=== PATIENT | female | born 1995 | race Two or more races ===

== ENCOUNTER 2020-02-22 00:11 | Observation (INO) | payer BC, OTHER ==
[~2020-02-22] VITALS: Ht 165.1 cm; Wt 92.1 kg
--- NOTE | 2020-02-22 00:57 | NUR ---
pt to room from lobby
[2020-02-22 01:22] LABS: MICROSCOPIC NOT IND
[2020-02-22] MEDS ORDERED: ONDANSETRON 2MG/ML, 2ML ONE ×2 (01:22→09:31)
[2020-02-22] MEDS ORDERED: MORPHINE SULFATE 4 MG/ML, 1ML ONE (01:23)
[2020-02-22] MEDS ORDERED: MORPHINE SULFATE 4 MG/ML, 1ML IVPush PRN ×3 (01:30→12:00)
[2020-02-22] MEDS ORDERED: ONDANSETRON 2MG/ML, 2ML IVPush ONE (01:30)
[2020-02-22 01:38] LABS: HCG UR SG 1.022 (1.003-1.030)
[2020-02-22 01:47] LABS: BASOPHILS % (AUTO) 1 % (0-1); EOSINOPHILS % (AUTO) 1 % (1-7); LYMPHOCYTES % (AUTO) 19 % (22-44); MEAN CORPUSCULAR HEMOGLOBIN 29.9 pg (27.0-34.8); MEAN PLATELET VOLUME 7.3 fL (7.4-10.4); MONOCYTES % (AUTO) 6 % (2-9); NEUTROPHILS % (AUTO) 73 % (42-75); PLATELET COUNT 238 x10^3/uL (130-400); RED BLOOD COUNT 4.08 x10^6/uL (3.82-5.3); RED CELL DISTRIBUTION WIDTH 13.3 % (9.6-15.2)
[2020-02-22 01:51] LABS: MD NO
[2020-02-22 02:00] LABS: ALANINE AMINOTRANSFERASE 20 U/L (12-78); ALBUMIN 3.2 g/dL (3.4-5.0); ANION GAP 5 mmol/L (5-15); CALCIUM 8.2 mg/dL (8.5-10.1); CHLORIDE 110 mmol/L (98-107); CREATININE 0.58 mg/dL (0.55-1.02)
--- NOTE | 2020-02-22 02:00 | NUR ---
pt resting at this time
[2020-02-22 02:02] LABS: ALKALINE PHOSPHATASE 75 U/L (45-117); BILIRUBIN,TOTAL 0.4 mg/dL (0.2-1.0); TOTAL PROTEIN 7.5 g/dL (6.4-8.2)
[2020-02-22] MEDS ORDERED: OMNIPAQUE 350 MG/ML, 100ML BOTTLE ONE (02:30)
--- NOTE | 2020-02-22 03:05 | NUR ---
at poc discussed with pt, pt to go to surgery for appy
--- NOTE | 2020-02-22 03:06 | NUR ---
pt up to br and undressed completly all jewlery removed
--- NOTE | 2020-02-22 03:07 | NUR ---
father at bedside
[2020-02-22] MEDS ORDERED: CEFTRIAXONE PMX 1GM/50ML 50 ML IV ONE (03:30)
[2020-02-22] MEDS ORDERED: SODIUM CHLORIDE 0.9% 1,000 ML IV ONE (03:30)
[2020-02-22] MEDS ORDERED: ONDANSETRON 2MG/ML, 2ML IVPush PRN ×2 (03:30→12:00)
[2020-02-22] MEDS ORDERED: CEFTRIAXONE PMX 1GM/50ML 50 ML ONE (03:46)
--- NOTE | 2020-02-22 04:05 | NUR ---
swabbed for rapid covid
[2020-02-22] MEDS ORDERED: NORE1TAB11 PO (04:15)
[2020-02-22 04:57] VITALS: BP 106/72
[2020-02-22] MEDS ORDERED: BUPIVACAINE/PF 0.5% ONE (07:01)
[2020-02-22] MEDS ORDERED: EPINEPHRINE 1 MG/ML, 1ML ONE (07:01)
[2020-02-22 07:56] VITALS: BP 105/58
[2020-02-22] MEDS ORDERED: CHLORHEXIDINE 15 ML UDC MM ONE (08:00)
[2020-02-22] MEDS ORDERED: DIPHENHYDRAMINE 50 MG/ML, 1ML IVPush PRN ×2 (08:30→12:00)
[2020-02-22] MEDS ORDERED: HYDROmorphone 1 MG/ML, 1ML INJ IVPush PRN (08:30)
[2020-02-22] MEDS ORDERED: PROMETHAZINE 25 MG/ML, 1ML IVPush PRN (08:30)
[2020-02-22] MEDS ORDERED: MEPERIDINE/PF 25MG/0.5ML IVPush PRN (08:30)
[2020-02-22] MEDS ORDERED: OXYcodone 5 MG/5 ML ORAL.SOL UDC PO PRN (08:30)
[2020-02-22] MEDS ORDERED: LABETALOL 5MG/ML, 20ML IV PRN (08:30)
[2020-02-22] MEDS ORDERED: hydrALAzine 20 MG/ML, 1ML IV PRN (08:30)
[2020-02-22] MEDS ORDERED: HALOPERIDOL 5 MG/ML IV PRN (08:30)
[2020-02-22] MEDS ORDERED: MIDAZOLAM 1 MG/ML, 2ML ONE (08:54)
[2020-02-22] MEDS ORDERED: FENTANYL PF 250 MCG/5ML ONE (08:54)
[2020-02-22] MEDS ORDERED: ROCURONIUM 10MG/ML,5ML ONE (09:31)
[2020-02-22] MEDS ORDERED: CEFAZOLIN 1,000 MG ONE (09:31)
[2020-02-22] MEDS ORDERED: PROPOFOL 10 MG/ML, 20ML ONE (09:31)
[2020-02-22] MEDS ORDERED: SUCCINYLCHOLINE 20 MG/ML, 10ML ONE (09:31)
[2020-02-22] MEDS ORDERED: DEXAMETHASONE 4 MG/ML, 1ML ONE (09:31)
[2020-02-22] MEDS ORDERED: NEOSTIGMINE 1 MG/ML, 10ML ONE (09:31)
[2020-02-22] MEDS ORDERED: CEFOTETAN 1 GM ONE ×2 (09:31)
[2020-02-22] MEDS ORDERED: GLYCOPYRROLATE 0.2MG/1ML, 5ML ONE (09:31)
[2020-02-22] MEDS ORDERED: FENTANYL PF 100 MCG/2ML ONE (09:49)
[2020-02-22] MEDS ORDERED: OXYcodone 5 MG/5 ML ORAL.SOL UDC ONE (09:49)
[2020-02-22] MEDS: FENTANYL PF 100 MCG/2ML IV PRN ×3 (09:52→10:22)
[2020-02-22] MEDS ORDERED: HYDROmorphone 1 MG/ML, 1ML INJ ONE (10:31)
[2020-02-22] MEDS ORDERED: LACTATED RINGERS 1,000 ML IV SCH (12:00)
[2020-02-22] MEDS ORDERED: OXYcodone/APAP 5/325MG TABLET PO PRN (12:00)
[2020-02-22] MEDS ORDERED: OXYC-302 PO (15:14)
== END 2020-02-22 15:40 | disposition home or self-care (01) ==
LOC: ED 02:01 → UNDOADMOB 03:13 → INTOOBSV 03:13 → 4NE 03:13 → ED 06:09 → 4NE 12:32 → UNDODISOB 15:40
PROVIDERS: ADMIT Colon & Rectal Surgery; ATTEND Colon & Rectal Surgery
DX: K37 Unspecified appendicitis (principal); Z20.828 Contact with and (suspected) exposure to other viral communicable diseases; N83.201 Unspecified ovarian cyst, right side
CPT/HCPCS: 36415; 44970; 74177; 80053; 81003; 81025; 83690; 85025; 87635; 88304; 96361; 96365; 96375; 96376; 99285; G0378; J0171; J0330; J0696; J1100; J1170; J2250; J2270; J2405; J2704; J2710; J3010; J7030; Q9967; S0020; J0690